=== PATIENT | male | born 1990 | race Caucasian/White ===

== ENCOUNTER 2023-07-03 01:47 | Emergency (ER) | payer OTHER, SELFPAY ==
[2023-07-03 01:50] VITALS: BP 113/81; PULSE 92; RESP 18; TEMP 36.9; O2SAT 98; BMI 23.4
--- NOTE | 2023-07-03 02:06 | ED_ITS ---
HPI - Animal Bite General Chief Complaint: Animal Bite Stated Complaint: ?Bite by [employer] [place] Time Seen by Provider: 07/03/23 01:58 Source: patient Mode of arrival: ambulatory Limitations: no limitations History of Present Illness HPI narrative: patient comes to the emergency room complaining of an animal bite to the left ankle. Patient states that he was about to throw the trash away, then an animal jumped out and bit him in the left ankle. Patient states that he clearly saw that it was a [place]. According to the patient, the animal was very aggressive, chased him and bit him. Patient is adamant that this was not a cat, raccoon or a skunk. Related Data Previous Rx's Medication Instructions Recorded doxycycline hyclate 100 mg capsule 100 mg PO BID #14 caps 07/03/23 ibuprofen 600 mg tablet 600 mg PO TID PRN fever or pain 07/03/23 #20 tabs metronidazole 500 mg tablet 500 mg PO BID #14 tabs 07/03/23 Allergies Allergy/AdvReac Type Severity Reaction Status Date / Time Penicillins [PENICILLINS] Allergy Unknown HIVES Verified 07/03/23 01:57 Review of Systems Review of Systems: Constitutional : No Weight loss, No Fever, No Chills, No Night Sweats, No Fatigue, No Malaise ENT/Mouth : No Hearing loss, No Ear Pain, No Nasal Congestion, No Sinus Pain, No Hoarseness, No sore throat, No Rhinorrhea, No Swallowing Difficulty Eyes: No Eye Pain, No Swelling, No Redness, No Foreign Body, No Discharge, No Vision Changes Cardiovascular : No Chest Pain, No SOB, No Dyspnea on Exertion, No Orthopnea, No Edema, No Palpitations Respiratory : No Cough, No Sputum, No Wheezing, No Smoke Exposure, No Dyspnea Gastrointestinal : No Nausea, No Vomiting, No Diarrhea, No Constipation, No abdominal Pain, No Hematochezia, No Melena Genitourinary : no irregular bleeding, No Dysuria, No Urinary Frequency, No Hematuria, No Urinary Incontinence, No Urgency, No Flank Pain, No Urinary Flow Changes, No Hesitancy Musculoskeletal : No joint pain, No Myalgias, No Joint Swelling Skin : complaining of an animal bite to the left ankle Neuro : No Weakness, No Numbness, No Paresthesias, No Loss of Consciousness, No Dizziness, No Headache Psych : No Anxiety/Panic, No Depression, No SI/HI/AH/VH, No Social Issues, Heme/Lymph: No Bruising, No Bleeding,No Lymphadenopathy Endocrine : No Polyuria, No Polydipsia, No Temperature Intolerance Physical Exam ED Vital Signs: Vital Signs - 24 hr 07/03/23 01:50 Temperature 98.4 F Pulse Rate 92 Respiratory Rate 18 Blood Pressure 113/81 Pulse Oximetry 98 Oxygen Delivery Method Room Air BMI result Body Mass Index 23.4 Const Other: Appearance: Alert. Oriented X3. No acute distress. Eyes: Pupils equal, round and reactive to light. ENT: Pharynx normal. Neck: Normal inspection. Neck supple. No lymph nodes noted. No crepitus CVS: Normal heart rate and rhythm. Pulses normal. Normal S1 and S2 Respiratory: No respiratory distress. Breath sounds normal. No Wheezing. No rales Abdomen: Soft and nontender. No rigidity. No distention. Skin: on the lateral aspect of the left ankle, there are two 1 cm puncture wound/bite wounds parallel to each other Extremities: No lower extremity edema. No Lacerations. No Rash Neuro: Oriented X 3. No motor deficit. No sensory deficit. Moving all extremities. No slurred speech. CN 2 through 12 grossly intact Psych: calm, cooperative, normal affect Course Course Course Narrative: - patient's wounds will be thoroughly cleaned and irrigated - patient does not know when his last Tdap booster was, patient will be getting 1 today - it is unclear if a [place] actually bit the patient. However, since this animal was described to be very aggressive, will go ahead and give the patient rabies immunoglobulin and vaccination - patient is allergic to penicillin, patient given p.o. metronidazole and doxycycline - patient is aware that he will need to return the following weeks for more immunizations to complete the whole series of rabies vaccine - patient agrees with the plan above mentioned Critical Care Time Critical Care Time Critical Care Time: Yes Total Critical Care Time: 30 Attestation: I have personally provided critical care time. Time includes review of lab data, radiology results, discussion with consultants, and monitoring for potential decompensation. Intervention performed as documented. Discharge Plan Discharge Clinical Impression: Bite by animal Patient Disposition: Home, Self-Care Instructions: Animal Bite (ED) Additional Instructions: Please follow-up with your primary care physician tomorrow. If you have any worsening or new symptoms, please return to the emergency room or call 911 Prescriptions: New metronidazole 500 mg tablet 500 mg PO BID Qty: 14 0RF doxycycline hyclate 100 mg capsule 100 mg PO BID Qty: 14 0RF ibuprofen 600 mg tablet 600 mg PO TID PRN (Reason: fever or pain) Qty: 20 0RF
--- NOTE | 2023-07-03 02:46 | MHC.EDTECH ---
This tech irrigated patients animal bite/wounds to the left lower leg near the ankle with 1000MLS of normal saline mixed with betadine per request of .
[2023-07-03] MEDS: Doxycycline Monohydrate 100 MG CAPSULE PO (02:50)
[2023-07-03] MEDS: metroNIDAZOLE 500 MG TABLET PO (02:50)
[2023-07-03] MEDS: Diphth,Pertus(ACell),Tet Adult 0.5 ML SYRINGE IM (02:51)
[2023-07-03] MEDS: Rabies Vaccine, Human Diploid (Imovax) 1 ML VIAL IM (02:53)
[2023-07-03] MEDS: Rabies Immune Globulin/PF 900 UNIT/3 ML VIAL 1696.44 UNIT IM (02:56)
--- NOTE | 2023-07-03 03:22 | PC.NURSE ---
pt a&ox4, respirations even and unlabored. pt reports taking the trash out outside of his apartment where a [place] started chasing him to his car, before he could shut the door, the [place] bit his left leg. pt reporting no pain at this time. pt has two medium size lacerations on the left lateral leg, bleeding controlled, wound cleaned and wrapped in bandage. at bedside to inject rabies imogam into lacerations. pt explained on discharge about follow up with short stay surgery and medication use. pt understands instructions and ambulated out of ED with steady gait.
== END 2023-07-03 03:26 | disposition home or self-care (01) ==
PROVIDERS: Emergency Provider Emergency Medicine
DX: S91.052A Open bite, left ankle, initial encounter (principal); W53.81XA Bitten by other rodent, initial encounter; Y93.89 Activity, other specified; Y92.9 Unspecified place or not applicable; Y99.9 Unspecified external cause status; Z23 Encounter for immunization
CPT/HCPCS: 90375; 90471; 90472; 90675; 90715; 96372; 99284

== ENCOUNTER 2024-01-04 01:46 | Emergency (ER) | payer MEDICAID, SELFPAY ==
[2024-01-04 02:16] VITALS: BP 122/88; PULSE 95; RESP 16; TEMP 37.1; O2SAT 98; BMI 23.0
[2024-01-04 02:42] VITALS: BP 119/86; PULSE 91; RESP 14; TEMP 37; O2SAT 99
[2024-01-04 02:59] LABS: Basophils Absolute Auto 0.1 X10*3/uL (0.0-0.2); Basophils Percent Auto 0.8 % (0-2); Eosinophils Absolute Auto 0.4 X10*3/uL (0.0-0.4); Hematocrit 40.9 % (42.0-52.0); Hemoglobin 14.3 g/dl (14.0-18.0); Imm Gran Abs Auto 0.02 X10*3/uL (0.00-0.03); Imm Gran Pct Auto 0.2 % (0.0-0.4); MANUAL DIFF FLAG NO; Mean Corpuscular Hemoglobin 28.4 pg (27.0-33.0); Mean Corpuscular Volume 81.3 fL (80.0-98.0); Monocytes Absolute Auto 0.9 X10*3/uL (0.1-1.2); Monocytes Percent Auto 8.5 % (2-11); Neutrophils Absolute Auto 4.7 x10*3/uL (2.0-8.3); Neutrophils Percent Auto 46.5 % (45-73); Platelet Count 260 X10*3/uL (160-400); Red Blood Count 5.03 X10*6/uL (4.60-5.80); Red Cell Distribution Width 12.5 % (11.0-16.0); White Blood Count 10.1 X10*3/uL (4.8-10.8)
[2024-01-04 03:02] LABS: Appearance Urine Clear; Color Urine Dark Yellow; Glucose Urine UA Negative (Negative); Leukocyte Esterase Urine Negative (Negative); Nitrite Urine Negative (Negative); Specific Gravity - Urine >= 1.030 (1.005-1.025); UMIC TRIGGER UACC YES; Urine Blood Negative (Negative); Urine Ketones Trace mg/dL (Negative); Urine Protein 30 (1+) mg/dL (Neg-Trace)
[2024-01-04 03:14] LABS: Amphetamine Screen Urine Not Detected (Not Detect); Barbiturates, Urine Not Detected (Not Detect); Benzodiazepines Screen Urine Not Detected (Not Detect); Buprenorphine Scr Not Detected (Not Detect); Cannabinoid Screen Urine Not Detected (Not Detect); Cocaine Screen Urine POSITIVE (Not Detect); Fentanyl, urine POSITIVE (Not Detect); Methadone Screen, Urine Not Detected (Not Detect); Opiate Screen Urine POSITIVE (Not Detect); Oxycodone Screen Urine Not Detected (Not Detect); Phencyclidine Screen Urine Not Detected (Not Detect)
[2024-01-04 03:21] LABS: Alanine Aminotransferase 9 U/L (0-40); Albumin Level 4.6 g/dL (3.5-5.0); Alkaline Phosphatase 46 U/L (39-117); Anion Gap 17 (12-20); Aspartate Amino Transferase 11 U/L (5-37); Bacteria Urine None Seen (None Seen); Bilirubin Total 0.7 mg/dL (0.0-1.0); Blood Urea Nitrogen 18 mg/dL (9-16); Calcium 9.7 mg/dL (8.4-10.2); Carbon Dioxide 20 mmol/L (22-29); Chloride 109 mmol/L (96-108); Creatinine Clr Calc Pharmacy 118.3; Estimated Glomerular Filt Rate > 60; Ethanol < 10 mg/dL; Glucose Random 111 mg/dL (60-115); Potassium 3.4 mmol/L (3.3-5.1); RBC Urine 0-2 /HPF (0-2); Sodium 143 mmol/L (135-145); Squamous Epithelial Cell Urine 0-2 /HPF (0-2); Total Protein 7.8 g/dL (6.5-8.0); WBC Urine 0-5 /HPF (0-5)
[2024-01-04 03:40] LABS: Influenza A PCR NEGATIVE (Negative); Influenza B PCR NEGATIVE (Negative); Resp Syncy Virus RNA Qual PCR NEGATIVE (Negative); SARS COV2 PCR INHOUSE NEGATIVE (Negative)
--- NOTE | 2024-01-04 04:13 | ED_ITS ---
HPI - Psych General Chief Complaint: ETOH/Substance Use Stated Complaint: Opioid Withdrawel Time Seen by Provider: 01/04/24 03:43 Source: patient Mode of arrival: ambulatory Limitations: no limitations History of Present Illness ED Provider: dr chen HPI Narrative: Patient's history of fentanyl opiate use for for 5 years was sober for 1 year till last month when started using drugs again uses fentanyl and heroin about 2 bundles a day last use was about 5 days patient was prescribed clonidine for withdrawal by the PCP which she took till yesterday morning since then been feeling jittery nauseous rest/asking for supportive treatment for withdrawal wants to go to detox Related Data Previous Rx's ?Medication ?Instructions ?Recorded doxycycline hyclate 100 mg capsule 100 mg PO BID #14 caps 07/03/23 ibuprofen 600 mg tablet 600 mg PO TID PRN fever or pain 07/03/23 #20 tabs metronidazole 500 mg tablet 500 mg PO BID #14 tabs 07/03/23 Allergies Allergy/AdvReac Type Severity Reaction Status Date / Time Penicillins [PENICILLINS] Allergy Unknown HIVES Verified 01/04/24 02:20 Review of Systems 2 Review of Systems: Yes all other systems are reviewed and are negative [facility] Social History Social History Advance Directives: No Advance Directives Information Provided: No Do you have a plan to hurt others: No Plan Physical Exam 2 Vital Signs: Vital Signs: Last Vital Signs Temp 98.6 F 01/04/24 02:42 Pulse 91 01/04/24 02:42 Resp 14 01/04/24 02:42 BP 124/80 01/04/24 04:26 Pulse Ox 99 01/04/24 02:42 O2 Del Method Room Air 01/04/24 02:42 BMI result Body Mass Index 23.0 Appearance: Alert. Oriented X3. No acute distress. Eyes: PERRLA, No Nystagmus ENT: Pharynx normal. Oral Mucosa moist Neck: Normal inspection. Neck supple. CVS: Normal heart rate and rhythm. Pulses normal. Respiratory: No respiratory distress. Equal air entry bilateral, no wheezing/rales/rhonchi Abdomen: Soft and nontender. Bowel sounds are present, no mass palpable, no CVA tenderness Skin: Skin warm and dry. Normal skin color. Normal skin turgor. Extremities: No lower extremity edema. No calf tenderness psych: Mood stable slightly anxious no hallucination or delusion no depression Neuro: Oriented X 3. No motor deficit. No sensory deficit.No cerebellar signs , cranial nerves II-XII intact Medications Administered Discontinued Medications Generic Name Dose Route Start Last Admin Trade Name Freq PRN Reason Stop Dose Admin Clonidine HCl 0.3 mg 01/04/24 04:13 01/04/24 04:26 Clonidine Hcl 0.1 Mg Tablet PO 01/04/24 04:14 0.3 mg ONCE ONE Administration Protocol Lorazepam 2 mg 01/04/24 04:16 01/04/24 04:26 Lorazepam 1 Mg Tablet PO 01/04/24 04:17 2 mg ONCE ONE Administration Medical Decision Making Lab Data 01/04/24 02:51 01/04/24 02:51 Labs: Lab Results 01/04/24 Range/Units 02:51 WBC 10.1 (4.8-10.8) X10*3/uL RBC 5.03 (4.60-5.80) X10*6/uL Hgb 14.3 (14.0-18.0) g/dl Hct 40.9 L (42.0-52.0) % MCV 81.3 (80.0-98.0) fL MCH 28.4 (27.0-33.0) pg MCHC 35.0 (31.0-36.0) g/dl RDW 12.5 (11.0-16.0) % Plt Count 260 (160-400) X10*3/uL MPV 11.0 (9.4-12.4) fL Immature Gran % (Auto) 0.2 (0.0-0.4) % Neut % (Auto) 46.5 (45-73) % Lymph % (Auto) 40.0 (20-40) % [place] % (Auto) 8.5 (2-11) % Eos % (Auto) 4.0 (0-4) % Baso % (Auto) 0.8 (0-2) % Lymph # (Auto) 4.0 (1.2-4.9) X10*3/uL [place] # (Auto) 0.9 (0.1-1.2) X10*3/uL Eos # (Auto) 0.4 (0.0-0.4) X10*3/uL Baso # (Auto) 0.1 (0.0-0.2) X10*3/uL Abs Immat Gran (auto) 0.02 (0.00-0.03) X10*3/uL Absolute Neuts (auto) 4.7 (2.0-8.3) x10*3/uL Absolute Nucleated RBC 0.000 (0.0-0.012) X10*3/uL Nucleated RBC % (auto) 0.0 (0.0-0.2) /100WBC Sodium 143 (135-145) mmol/L Potassium 3.4 (3.3-5.1) mmol/L Chloride 109 H (96-108) mmol/L Carbon Dioxide 20 L (22-29) mmol/L Anion Gap 17 (12-20) BUN 18 H (9-16) mg/dL Creatinine 1.03 (0.5-1.4) mg/dL Estim Creat Clear Calc 118.3 Estimated GFR > 60 Random Glucose 111 (60-115) mg/dL Calcium 9.7 (8.4-10.2) mg/dL Total Bilirubin 0.7 (0.0-1.0) mg/dL AST 11 (5-37) U/L ALT 9 (0-40) U/L Alkaline Phosphatase 46 (39-117) U/L Total Protein 7.8 (6.5-8.0) g/dL Albumin 4.6 (3.5-5.0) g/dL Urine Color Dark Yellow Urine Appearance Clear Urine pH 5.0 (5.0-9.0) Ur Specific [place] >= 1.030 H (1.005-1.025) Urine Protein 30 (1+) H (Neg-Trace) mg/dL Urine Glucose (UA) Negative (Negative) mg/dL Urine Ketones Trace (Negative) mg/dL Urine Blood Negative (Negative) Urine Nitrite Negative (Negative) Ur Leukocyte Esterase Negative (Negative) Urine RBC 0-2 (0-2) /HPF Urine WBC 0-5 (0-5) /HPF Ur Squamous Epith Cells 0-2 (0-2) /HPF Urine Bacteria None Seen (None Seen) Hyaline Casts 3-5 (0-2) /LPF Urine Opiates Screen POSITIVE H (Not Detect) Ur Buprenorphine Scrn Not Detected (Not Detect) ng/mL Ur Oxycodone Screen Not Detected (Not Detect) ng/mL Urine Methadone Screen Not Detected (Not Detect) ng/mL Urine Fentanyl Screen POSITIVE H (Not Detect) Ur Barbiturates Screen Not Detected (Not Detect) Ur Phencyclidine Scrn Not Detected (Not Detect) Ur Amphetamines Screen Not Detected (Not Detect) U Benzodiazepines Scrn Not Detected (Not Detect) Urine Cocaine Screen POSITIVE H (Not Detect) U Marijuana (THC) Screen Not Detected (Not Detect) Ethyl Alcohol < 10 mg/dL Influenza Type A (PCR) NEGATIVE (Negative) Influenza Type B (PCR) NEGATIVE (Negative) RSV RNA Qual (PCR) NEGATIVE (Negative) SARS-CoV-2 RNA (RT-PCR) NEGATIVE (Negative) Discharge Plan Discharge Clinical Impression: Opiate addiction Patient Disposition: Left W/O Completing Treatment Prescriptions: No Action metronidazole 500 mg tablet 500 mg PO BID Qty: 14 0RF doxycycline hyclate 100 mg capsule 100 mg PO BID Qty: 14 0RF ibuprofen 600 mg tablet 600 mg PO TID PRN (Reason: fever or pain) Qty: 20 0RF Discharge Date/Time: 01/04/24 04:55
[2024-01-04 04:26] VITALS: BP 124/80
[2024-01-04] MEDS: cloNIDine HCL 0.1 MG TABLET 0.3 MG PO (04:26)
[2024-01-04] MEDS: LORazepam 1 MG TABLET 2 MG PO (04:26)
--- NOTE | 2024-01-04 04:56 | PC.NURSE ---
This RN came out of pt room and pt was not on stretcher. Searched ED,pt and belongings were gone. Pt was medicated with Catapres and Ativan PPO for opiate withdrawal, Alert and oriented X4, reporting that he had called for detox and wanted to be started om suboxone. Pt was changed over into hospital attire, ambuated with steady gait and no difficulties and seen by MD. Pt LWCT.
== END 2024-01-04 04:55 | disposition left against medical advice (07) ==
PROVIDERS: Emergency Provider Internal Medicine; PCP Internal Medicine
DX: F11.20 Opioid dependence, uncomplicated (principal); R11.0 Nausea; Z03.818 Encounter for observation for suspected exposure to other biological agents ruled out
CPT/HCPCS: 0241U; 36415; 80053; 80307; 81001; 85025; 99283

== ENCOUNTER 2024-07-21 12:28 | Emergency (ER) | payer SELFPAY ==
--- NOTE | ~2024-07-21 | CT_ITS ---
EXAMINATION: CT ABDOMEN AND PELVIS WITH CONTRAST CLINICAL INFORMATION: Abdominal pain, nausea and vomiting COMPARISON: None available. TECHNIQUE: Multidetector volumetric images were obtained from the superior aspect of the liver through the pubic symphysis following administration 85 mL of Omnipaque 350 intravenous contrast. Sagittal and coronal reformatted images were obtained on the technologist's workstation. Oral contrast: No This CT examination was performed using dose optimization techniques as appropriate, variously including the following: *Automated exposure control *Adjustment of mA and/or kV according to patient size (this includes techniques or standardized protocols for targeted exams where dose is matched to indication/reason for exam; i.e. extremities or head) *Use of iterative reconstruction technique DLP: 453 mGy-cm FINDINGS: LUNG BASES: The visualized lung bases are unremarkable. LIVER, GALLBLADDER, AND BILIARY TREE: The liver is normal in size, shape, and attenuation. No focal hepatic lesion or biliary ductal dilatation is present. The gallbladder is unremarkable with no evidence of radiopaque gallstones, gallbladder wall thickening, or obvious pericholecystic inflammatory changes. PANCREAS: Unremarkable. SPLEEN: Unremarkable. ADRENAL GLANDS: Unremarkable. KIDNEYS AND URETERS: The kidneys are normal in size, shape, and attenuation. No hydronephrosis, hydroureter, or calculi seen. No perinephric stranding. BLADDER: Unremarkable. GASTROINTESTINAL TRACT: The small and large bowel are unremarkable. The appendix is unremarkable. ABDOMINAL WALL: No significant hernia is appreciated. LYMPH NODES: Normal. VASCULAR: Unremarkable. PELVIC VISCERA: Unremarkable. OSSEOUS STRUCTURES: Unremarkable. CT/CT abdomen pelvis w IV con IMPRESSION: No significant abnormality. Fleischner guidelines were followed. Electronically signed by: Elaine Segal MD 07/21/2024 03:46 PM [facility]
[2024-07-21 12:33] VITALS: BP 113/77; BP 137/80; PULSE 82; PULSE 99; RESP 18; TEMP 36.9; O2SAT 98; O2SAT 99; BMI 25.0
--- NOTE | 2024-07-21 12:34 | ED_ITS ---
HPI - General Adult General Chief complaint: Nausea/Vomiting/Diarrhea Stated complaint: ABD PAIN VOMITING Time Seen by Provider: 07/21/24 12:34 Source: patient and EMS Mode of arrival: EMS Limitations: no limitations History of Present Illness ED Provider: Beverley Benavidez PA-C HPI narrative: Patient is a 34 year old assigned male at with a history of opiate use disorder last use yesterday presenting to the emergency department today with nausea, vomiting, and inability to sleep. Patient states that this morning he began having abdominal pain with nausea and vomiting. Patient states that he is currently using a lot of fentanyl and would like detox after we make sure nothing else is medically causing his symptoms. Patient denies any dizziness, lightheadedness, fever, chills, blurry vision, double vision, loss of vision, chest pain, difficulty breathing, shortness of breath, back pain, night sweats, pain with urination, increased urinary frequency, increased urinary urgency, blood in his urine or stool, syncope or a near syncopal episode, recent trauma or falls, bowel incontinence, bladder incontinence, or any other complaints at this time. Relieving factors: none Exacerbating factors: none Associated symptoms: nausea/vomiting Treatments prior to arrival: none Related Data Previous Rx's ?Medication ?Instructions ?Recorded doxycycline hyclate 100 mg capsule 100 mg PO BID #14 caps 07/03/23 ibuprofen 600 mg tablet 600 mg PO TID PRN fever or pain 07/03/23 #20 tabs metronidazole 500 mg tablet 500 mg PO BID #14 tabs 07/03/23 Allergies Allergy/AdvReac Type Severity Reaction Status Date / Time Penicillins [PENICILLINS] Allergy Unknown HIVES Verified 07/21/24 12:36 Review of Systems 2 Constitutional: Constitutional: Reports no additional constitutional complaints, Denies chills, Denies fever(s) and Denies night sweats Eyes: Eyes: Reports no additional eye complaints, Denies blurry vision, Denies change in vision, Denies diplopia, Denies eye discharge, Denies loss of vision and Denies eye pain ENT: Denies dizziness Cardiovascular: Cardiovascular: Reports no additional cardiovascular complaints, Denies chest pain, Denies lightheadedness, Denies Loss of Consciousness and Denies dyspnea Respiratory: Respiratory: Reports no additional respiratory complaints and Denies dyspnea Gastrointestinal: Gastrointestinal: Reports no additional gastrointestinal complaints, Reports abdominal pain, Denies melena, Denies hematochezia, Denies change in bowel habits, Denies change in stool character, Reports nausea and Reports vomiting Genitourinary: Genitourinary: Reports no additional male genitourinary complaints, Denies hematuria, Denies oliguria, Denies difficulty urinating, Denies dysuria, Denies urinary frequency, Denies urinary hesitancy, Denies urinary incontinence and Denies urinary urgency Musculoskeletal: Musculoskeletal: Reports no additional musculoskeletal complaints, Denies numbness and Denies tingling Neurologic: Denies dizziness, Denies loss of vision, Denies numbness and Denies tingling Psychiatric: Psychiatric: Reports no additional psychiatric complaints Endocrine: Endocrine: Reports no additional endocrine complaints Hematologic/Lymphatic: Hematologic/Lymphatic: Reports no additional hematologic/lymphatic complaints Allergic/Immunologic: Allergic/Immunologic: Reports no additional allergic/immunologic complaints PMFSH Past Medical History Attestation statement: The following information was validated with the patient. Source: old records reviewed and nursing notes reviewed Social History Social History Alcohol intake: current Alcohol intake frequency: holidays/special occasions only Smoked in Last 30 Days: Yes Use of substances other than those prescribed or required for medical reasons: Yes Advance Directives: No Advance Directives Information Provided: No Do you have a plan to hurt others: No Plan Physical Exam ED Vital Signs: Vital Signs - 24 hr 07/21/24 12:33 07/21/24 14:48 Temperature 98.4 F 98.4 F Pulse Rate 82 80 Respiratory Rate 18 14 Blood Pressure 113/77 118/70 Pulse Oximetry 98 100 Oxygen Delivery Method Room Air Room Air BMI result Body Mass Index 25.0 Const General: cooperative, no acute distress, alert and awake Nutritional Appearance: well nourished Orientation/consciousness: patient oriented x3 Limitations: no limitations HENMT Head: Yes normal to inspection and Yes atraumatic Ears: hearing grossly normal bilaterally and external ears normal General nose exam: Normal external nose present, no nasal discharge noted and no epistaxis Face and sinus: Yes normal facial exam, No abrasion and No laceration Mouth: Normal oral and palatal mucosa present, no drooling and no muffled voice Eyes General: appearance normal, both eyes and all related structures Periorbital: periorbital findings normal Eyelids: Yes eyelids normal Conjunctivae: conjunctivae normal Pupils: Equal, round and reactive pupils present EOM: EOMs intact bilaterally Neck Neck: Yes normal visual inspection, Yes full ROM and Yes no lymphadenopathy Chest Chest palpation & inspection: normal inspection of the chest Resp Effort & Inspection: normal respiratory effort and able to speak in complete sentences GI Inspection: Yes normal to inspection Palpation (GI): Soft to palpation, not firm, nontender and no guarding Neuro General: patient oriented x3 and moves all extremities Cranial nerves: Yes Equal, round and reactive pupils present Cognition (Neuro): normal cognition Extrem General: Yes normal to inspection, Yes full ROM and Yes capillary refill normal Psych Appearance: grossly normal Mental Status: mental status grossly normal Affect: normal affect Attitude: cooperative Thought process: Normal thought process present Thought content: Normal thought content present Insight: Good insight present (Psych) Medications Administered Discontinued Medications Generic Name Dose Route Start Last Admin Trade Name Freq PRN Reason Stop Dose Admin Sodium Chloride 1,000 mls @ 999 mls/hr 07/21/24 12:45 07/21/24 16:15 Ns IV 07/21/24 13:45 Infused .Q1H1M CRISTAL Infusion Iohexol 85 ml 07/21/24 14:25 07/21/24 14:25 Iohexol 350 Mg/Ml 75 Ml Infus..Btl IV 07/21/24 14:26 85 ml ONCE ONE Administration Lorazepam 2 mg 07/21/24 12:36 07/21/24 12:44 Lorazepam 2 Mg/Ml Vial IVPUSH 07/21/24 12:37 2 mg ONCE ONE Administration Metoclopramide HCl 10 mg 07/21/24 12:36 07/21/24 12:44 Metoclopramide Hcl 10 Mg/2 Ml Vial IVPUSH 07/21/24 12:37 10 mg ONCE ONE Administration Pantoprazole Sodium 40 mg 07/21/24 12:43 07/21/24 12:50 Pantoprazole Sodium 40 Mg/10 Ml Vial IVPUSH 07/21/24 12:44 40 mg ONCE ONE Administration Medical Decision Making Medical Decision Making MDM Narrative: Patient is a 34 year old assigned male at with a history of opiate use disorder last use yesterday presenting to the emergency department today with nausea, vomiting, and inability to sleep. Patient's physical exam was as noted in the physical exam portion of this note. Patient's blood work showed a mild hyponatremia. Patient's urine is pending. Patient's EKG was unremarkable. Patient's CT abd/pelvis showed no acute process. I explained my physical exam findings as well as all test results to the patient. I answered all questions asked by the patient. Patient received IV reglan, protonix, and lorazepam which, upon re-evaluation, he stated it helped his symptoms significantly. Patient has requested to get detox assistance. Patient is pending meeting with the CARE team to discuss detox resources. Dr. Chidi Escobedo's note and 16:38 hours The patient was seen by the recovery team and the patient will be referred to the [facility] for further evaluation. Patient was discharged home with printed and verbal instructions. Differential Diagnosis Differential Diagnoses: The differential diagnosis associated with the presentation includes Opiate withdrawal Opiate abuse Nausea Vomiting Gastroenteritis Admission/Observation Consideration of admission/observation: Escalation of care including admission/observation considered Patient would have been admitted to the hospital had his work up had any findings where hospital admission was appropriate and his clinical presentation warranted hospital admission. Lab Data [facility] Lab Attestation statement: I reviewed the patient's lab results. My interpretation of these results are in the [facility] Rationale portion of this note. 07/21/24 12:58 12 12:58 Labs: Lab Results 07/21/24 Range/Units 12:58 WBC 7.8 (4.8-10.8) X10*3/uL RBC 5.40 (4.60-5.80) X10*6/uL Hgb 14.9 (14.0-18.0) g/dl Hct 42.2 (42.0-52.0) % MCV 78.1 L (80.0-98.0) fL MCH 27.6 (27.0-33.0) pg MCHC 35.3 (31.0-36.0) g/dl RDW 12.6 (11.0-16.0) % Plt Count 242 (160-400) X10*3/uL MPV 11.5 (9.4-12.4) fL Immature Gran % (Auto) 0.1 (0.0-0.4) % Neut % (Auto) 73.3 H (45-73) % Lymph % (Auto) 16.9 L (20-40) % Waller % (Auto) 8.4 (2-11) % Eos % (Auto) 0.3 (0-4) % Baso % (Auto) 1.0 (0-2) % Lymph # (Auto) 1.3 (1.2-4.9) X10*3/uL Waller # (Auto) 0.7 (0.1-1.2) X10*3/uL Eos # (Auto) 0.0 (0.0-0.4) X10*3/uL Baso # (Auto) 0.1 (0.0-0.2) X10*3/uL Abs Immat Gran (auto) 0.01 (0.00-0.03) X10*3/uL Absolute Neuts (auto) 5.7 (2.0-8.3) x10*3/uL Absolute Nucleated RBC 0.000 (0.0-0.012) X10*3/uL Nucleated RBC % (auto) 0.0 (0.0-0.2) /100WBC Sodium 141 (135-145) mmol/L Potassium 3.1 L (3.3-5.1) mmol/L Chloride 98 (96-108) mmol/L Carbon Dioxide 30 H (22-29) mmol/L Anion Gap 16 (12-20) BUN 14 (9-16) mg/dL Creatinine 1.17 (0.5-1.4) mg/dL Estim Creat Clear Calc 104.3 Estimated GFR > 60 Random Glucose 104 (60-115) mg/dL Calcium 9.9 (8.4-10.2) mg/dL Magnesium 1.9 (1.6-2.6) mg/dL Total Bilirubin 0.8 (0.0-1.0) mg/dL AST 22 (5-37) U/L ALT 11 (0-40) U/L Alkaline Phosphatase 58 (39-117) U/L Total Protein 8.4 H (6.5-8.0) g/dL Albumin 4.9 (3.5-5.0) g/dL Lipase 23 (8-78) U/L Influenza Type A (PCR) NEGATIVE (Negative) Influenza Type B (PCR) NEGATIVE (Negative) RSV RNA Qual (PCR) NEGATIVE (Negative) SARS-CoV-2 RNA (RT-PCR) NEGATIVE (Negative) Independent Interpretation I performed an independent interpretation of an: EKG and CT Scan Interpretation: My interpretation is in agreement with the radiologist's impression of this imaging study. L EXAMINATION: CT ABDOMEN AND PELVIS WITH CONTRAST CLINICAL INFORMATION: Abdominal pain, nausea and vomiting COMPARISON: None available. TECHNIQUE: Multidetector volumetric images were obtained from the superior aspect of the liver through the pubic symphysis following administration 85 mL of Omnipaque 350 intravenous contrast. Sagittal and coronal reformatted images were obtained on the technologist's workstation. Oral contrast: No This CT examination was performed using dose optimization techniques as appropriate, variously including the following: *Automated exposure control *Adjustment of mA and/or kV according to patient size (this includes techniques or standardized protocols for targeted exams where dose is matched to indication/reason for exam; i.e. extremities or head) *Use of iterative reconstruction technique DLP: 453 mGy-cm FINDINGS: LUNG BASES: The visualized lung bases are unremarkable. LIVER, GALLBLADDER, AND BILIARY TREE: The liver is normal in size, shape, and attenuation. No focal hepatic lesion or biliary ductal dilatation is present. The gallbladder is unremarkable with no evidence of radiopaque gallstones, gallbladder wall thickening, or obvious pericholecystic inflammatory changes. PANCREAS: Unremarkable. SPLEEN: Unremarkable. ADRENAL GLANDS: Unremarkable. KIDNEYS AND URETERS: The kidneys are normal in size, shape, and attenuation. No hydronephrosis, hydroureter, or calculi seen. No perinephric stranding. BLADDER: Unremarkable. GASTROINTESTINAL TRACT: The small and large bowel are unremarkable. The appendix is unremarkable. ABDOMINAL WALL: No significant hernia is appreciated. LYMPH NODES: Normal. VASCULAR: Unremarkable. PELVIC VISCERA: Unremarkable. OSSEOUS STRUCTURES: Unremarkable. CT/CT abdomen pelvis w IV con IMPRESSION: No significant abnormality. Fleischner guidelines were followed. Electronically signed by: Elaine Segal MD 07/21/2024 03:46 PM [facility] Dictated By: Elaine Segal MD Signed By: Electronically signed by Elaine Segal MD 07/21/24 1546 Vent. Rate: 084 BPM Atrial Rate: 084 BPM P-R Int: 114 ms QRS Dur: 104 ms QT Int: 396 ms P-R-T Axes: 059 067 059 degrees QTc Int: 467 ms Normal sinus rhythm with sinus arrhythmia Normal ECG No previous ECGs available DD/ 1245 Radiology Impression Discussion of test interpretation with radiology: I have reviewed the radiologist's reading. Independent Historian Clinical information obtained from an independent historian. History obtained from or confirmed by: EMS (EMS provided additional history and confirmed the history provided by the patient.) Discharge Plan Discharge Clinical Impression: Gastroenteritis, Opiate abuse, continuous Patient Disposition: Home, Self-Care Additional Instructions: You were seen by our recovery clinician. Please follow her instructions. Please follow-up with the [facility] to get further help for your opiate use disorder. Your are being discharged home with intranasal Narcan. If you are going to continue to use heroin, you should make sure that there is a sober person with you that is not using drugs and that this person can administer intranasal Narcan in the event that you stop breathing. Prescriptions: No Action metronidazole 500 mg tablet 500 mg PO BID Qty: 14 0RF doxycycline hyclate 100 mg capsule 100 mg PO BID Qty: 14 0RF ibuprofen 600 mg tablet 600 mg PO TID PRN (Reason: fever or pain) Qty: 20 0RF Print Language: Thai
--- NOTE | 2024-07-21 12:38 | ECG_ITS ---
Test Reason : MED CLEARANCE Blood Pressure : / mmHG Vent. Rate : 084 BPM Atrial Rate : 084 BPM P-R Int : 114 ms QRS Dur : 104 ms QT Int : 396 ms P-R-T Axes : 059 067 059 degrees QTc Int : 467 ms Normal sinus rhythm with sinus arrhythmia Normal ECG No previous ECGs available Referred By: Beverley Benavidez Electronically Signed By:NORBERTO CHI MD
[2024-07-21] MEDS: Metoclopramide HCl 10 MG/2 ML VIAL IVPUSH (12:44)
[2024-07-21] MEDS: LORazepam 2 MG/ML VIAL IVPUSH (12:44)
[2024-07-21] MEDS: 0.9 % Sodium Chloride 1,000 ML 999 ML IV (12:47)
[2024-07-21] MEDS: Pantoprazole Sodium 40 MG/10 ML VIAL IVPUSH (12:50)
[2024-07-21 13:02] LABS: MANUAL DIFF FLAG NO
[2024-07-21 13:04] LABS: Basophils Absolute Auto 0.1 X10*3/uL (0.0-0.2); Eosinophils Percent Auto 0.3 % (0-4); Hematocrit 42.2 % (42.0-52.0); Hemoglobin 14.9 g/dl (14.0-18.0); Imm Gran Abs Auto 0.01 X10*3/uL (0.00-0.03); Imm Gran Pct Auto 0.1 % (0.0-0.4); Lymphocytes Absolute Auto 1.3 X10*3/uL (1.2-4.9); Lymphocytes Percent Auto 16.9 % (20-40); Mean Corpuscular HGB Conc 35.3 g/dl (31.0-36.0); Mean Corpuscular Hemoglobin 27.6 pg (27.0-33.0); Mean Corpuscular Volume 78.1 fL (80.0-98.0); Mean Platelet Volume 11.5 fL (9.4-12.4); Monocytes Absolute Auto 0.7 X10*3/uL (0.1-1.2); Monocytes Percent Auto 8.4 % (2-11); Neutrophils Absolute Auto 5.7 x10*3/uL (2.0-8.3); Neutrophils Percent Auto 73.3 % (45-73); Platelet Count 242 X10*3/uL (160-400); Red Cell Distribution Width 12.6 % (11.0-16.0); White Blood Count 7.8 X10*3/uL (4.8-10.8)
[2024-07-21 13:41] LABS: Influenza A PCR NEGATIVE (Negative); Influenza B PCR NEGATIVE (Negative); Resp Syncy Virus RNA Qual PCR NEGATIVE (Negative); SARS COV2 PCR INHOUSE NEGATIVE (Negative)
[2024-07-21 13:52] LABS: Alanine Aminotransferase 11 U/L (0-40); Albumin Level 4.9 g/dL (3.5-5.0); Alkaline Phosphatase 58 U/L (39-117); Anion Gap 16 (12-20); Aspartate Amino Transferase 22 U/L (5-37); Bilirubin Total 0.8 mg/dL (0.0-1.0); Blood Urea Nitrogen 14 mg/dL (9-16); Calcium 9.9 mg/dL (8.4-10.2); Carbon Dioxide 30 mmol/L (22-29); Chloride 98 mmol/L (96-108); Creatinine Clr Calc Pharmacy 104.3; Estimated Glomerular Filt Rate > 60; Glucose Random 104 mg/dL (60-115); Lipase 23 U/L (8-78); Magnesium 1.9 mg/dL (1.6-2.6); Potassium 3.1 mmol/L (3.3-5.1); Sodium 141 mmol/L (135-145); Total Protein 8.4 g/dL (6.5-8.0)
[2024-07-21] MEDS: iohexoL 350 MG/ML 75 ML INFUS..BTL 85 ML IV (14:25)
[2024-07-21 14:48] VITALS: BP 118/70; PULSE 80; RESP 14; TEMP 36.9; O2SAT 100
--- NOTE | 2024-07-21 16:17 | PC.NURSE ---
assumed care of patient at 1615, patient appears to be in no apparent distress at this time, ambulating with steady gait, calm and cooperative. Pt asking about starting methadone, ROSINA Levi in room with patient at this time
[2024-07-21 16:55] VITALS: BP 114/75; PULSE 78; RESP 16; TEMP 36.6; O2SAT 97
[2024-07-21] MEDS: Naloxone HCl Nasal TAKE HOME 4 MG SPRAY 8 MG NOSTRILALT (16:55)
--- OUTSIDE RECORDS SUMMARY | 2024-07-24 12:07 | XMS_ITS | Continuity of Care Document ---
Author Organization [facility] Address [address] [place] [address] [address] [place] [id number] Phone Care Team Providers Care Lead Bi Developer Name Role Phone Isreal MUSE FACS RVT Zev CORTEZ Unavailable Unavailable Allergies, Adverse Reactions, Alerts Substance Reaction Status Criticality No Known Allergies Active No Inform ation Procedures Procedure Date Office/Outpt E&M Established 15 Mins Sep Duplex Scan-extrem Veins; [facility]/ Advance Directives Directive Yes / No Effective Date File Name No Information Encounters Encounter Description Practice Location Reason(s) For Visit Diagnoses Date Provider Providers Copied on Encounter Office/Outpt E&M Established 15 Mins [facility], [address] [place] [address] [address], [id number], [place] tel:[phone] [facility] Body mass index (BMI) 26.0-26.9, adultVenous insufficiency (chronic) (peripheral) 3 Isreal MUSE FACS RVGabriella Chi. [address] [facility], [facility] [address], [place], [address], [place]. tel:[phone] Referring Provider: [facility], [address] [place] [address], [address]. tel:[phone] [facility], [address] [place] [address] [address], [id number], [place] tel:[phone] [facility] Encntr for f/u exam aft trtmt for cond oth than malig neoplmVaricose veins of right lower extremities with pain 3 Isreal MUSE FACS RVT DANA Chi. [address] [facility], [facility] [address], [facility] [place], [address], [place]. tel:[phone] Referring Provider: [facility], [address] [place] [address], [facility] [place], [address]. tel:[phone] Family History Family Member Type Diagnosis Age At Onset No Information Payers Payer name Insurance type Covered republican ID Dmitry carter(s) R [id number] Social History Type Description Quantity Date Captured [...]
== END 2024-07-21 17:01 | disposition home or self-care (01) ==
PROVIDERS: Physician Assistant Medical; Emergency Provider Emergency Medicine Emergency Medical Services
DX: K52.9 Noninfective gastroenteritis and colitis, unspecified (principal); I49.8 Other specified cardiac arrhythmias; R11.2 Nausea with vomiting, unspecified; R10.2 Pelvic and perineal pain; F11.10 Opioid abuse, uncomplicated; Z03.818 Encounter for observation for suspected exposure to other biological agents ruled out; Z79.899 Other long term (current) drug therapy
CPT/HCPCS: 0241U; 74177; 80053; 83690; 83735; 85025; 93005; 96361; 96374; 96375; 99284; J2060; J2470; J2765; Q9967

== ENCOUNTER → 2024-07-21 12:38 | Outpatient (BNV) | payer SELFPAY | PROVIDERS: Emergency Provider Emergency Medicine Emergency Medical Services; Visit Provider Internal Medicine Cardiovascular Disease | DX: R11.2 Nausea with vomiting, unspecified (principal) | CPT/HCPCS: 93010 ==

== ENCOUNTER 2025-04-21 02:57 | Emergency (ER) | payer MEDICAID, SELFPAY ==
--- OUTSIDE RECORDS SUMMARY | 2022-09-28 10:15 | XMS_ITS | Continuity of Care Document ---
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 Role Phone Isreal MUSE FACS RVT Zev CORTEZ Unavailable Unavailable Allergies, Adverse Reactions, Alerts Substance Reaction Status Criticality No Known Allergies Active No Inform ation Procedures Procedure Date Office/Outpt E&M Established 15 Mins Sep Duplex Scan-extrem Veins; [facility]/ Advance Directives Directive Yes / No Effective Date File Name No Information Encounters Encounter Description Practice Location Reason(s) For Visit Diagnoses Date Provider Providers Copied on Encounter Office/Outpt E&M Established 15 Mins [facility], [address] [place] [address] Dr [address], [id number], [place] tel:[phone] [facility] Body mass index (BMI) 26.0-26.9, adultVenous insufficiency (chronic) (peripheral) 3 Isreal MUSE FACS RVGabriella Chi. [address] [facility], [facility] [address], [place], [address], [place]. tel:[phone] Referring Provider: [facility], [address] [place] [address], [address]. tel:[phone] [facility], [address] [place] [address] [address], [id number], [place] tel:[phone] [facility] Encntr for f/u exam aft trtmt for cond oth than malig neoplmVaricose veins of right lower extremities with pain 3 Isreal MUSE FACS RVT DANA Chi. [address] [facility], [facility] [address], [place], [address], [place]. tel:[phone] Referring Provider: [facility], [address] [place] [address], [facility] [place], [address]. tel:[phone] Family History Family Member Type Diagnosis Age At Onset No Information Payers Payer name Insurance type Covered alliance party ID Dmitry carter(s) R CI [id number] Social History Type Description Quantity Date Captured Comments Alcohol Use Details Caffeine Use Details Unknown Tobacco Use Status Ex-cigarette smoker 023 Smoking Status Former smoker Smoking Tobacco Use Details Cigarette: Age Stopped: 23 Cigarette: No Details Available Sex Male Vital Signs Date / Time: Height Weight BMI Pulse Rate Blood Pressure Temperature Respiratory Rate Body Surface Area Head Circumference Head Circ. Percentile Wt./Herrera. Percentile BMI percentile Pulse Ox Inhaled Ox 2:31 PM 75.00 in Chief Complaint And Reason For Visit No Information Reason For Referral Reason For Referral No Information Plan Of Treatment Date Type Action Status Goal Tobacco cessation counseling completed Goal Diet education completed History Of Present Illness Encounter Date Complaint History Of Prese nt Illness No Information Functional Status Date Functional Assessmen t No Information Instructions Date Instruction Additional Infor myrna Giving Encouragement to Exercise Related to Body mass index [BMI] 26.0-26.9, adult Diet education Related to Body mass index [BMI] 26.0-26.9, adult Assessments Type Assessment Date assessment Body mass index [BMI] 26.0-26.9, adult assessment Venous insufficiency (chronic) ( peripheral) Patient Care Teams Name Effective Dates (start - stop) Status Members No Information
--- OUTSIDE RECORDS SUMMARY | 2024-09-18 06:30 | XMS_ITS ---
Author Organization [facility] Address [address] [place] [phone] Care Team Providers Care Crna Name Role Phone NO, PCP Primary Care Provider Karlee Levine Unavailable REASON FOR VISIT po bx, hsng, basic intake Social History Sex Assigned At : Social History Observation Description Sex Assigned At Male Encounters Encounter Location Date Provider Diagnosis [facility] [address] [place] [phone] 09/18/2024 Karlee Levine Plan Of Treatment No Information Progress Notes * Damion GOODWINDOB:[birth year] (34 yo M)Acc No.[id number]:09/18/2024 Case Management New Patient: Damion TOLEDO Mahsa Provider: Raymundo Levine :1990 A ge:34 Y S ex:Male Date:09/18/2024 Address:[address] [place], [place] [id number] Pcp:PCP NO Subjective: * Chief Complaints: * 1 . Po bx, hsng, basic intake. Objective: Assessment: Plan: * Treatment: * Images: Billing Information: * Visit Code: * Procedure Codes: Care Plan Details* * Electronic signature of John Levine on 04/21/2025 at 03:32 AM EDT Sign off status: Pending * Provider: Raymundo Levine Date: 09/18/2024 Generated for Printi ng/Faxing/eTransmitting on: 0 04/21/2025 03:32 AM EDT
--- NOTE | 2025-04-21 | ECG_ITS ---
Test Reason : SYNCOPE Blood Pressure : */* mmHG Vent. Rate : 73 BPM Atrial Rate : 73 BPM P-R Int : 172 ms QRS Dur : 102 ms QT Int : 396 ms P-R-T Axes : 52 16 39 degrees QTcB Int : 436 ms Normal sinus rhythm Normal ECG When compared with ECG of 21-Jul-2024 12:45, T wave amplitude has increased in Anterolateral leads Referred By: Generic ED Physician Electronically Signed By: NORBERTO CHI MD
--- NOTE | ~2025-04-21 | US_ITS ---
CLINICAL HISTORY: r o DVT, bilateral swelling erythema Venous duplex ultrasound bilateral lower extremity Comparison: None provided Findings: The visualized deep veins are fully compressible with normal Doppler color flow and spectral tracings. No popliteal cyst. Incidental note is made of benign-appearing common femoral chain lymph nodes. IMPRESSION: 1. Negative for bilateral lower extremity deep vein thrombosis. This document has been electronically signed by: Sammy Frey MD on 04/21/2025 05:56:27
--- NOTE | ~2025-04-21 | XR_ITS ---
CLINICAL HISTORY: syncope 2 view chest x-ray Comparison: None provided Findings: The lungs are clear. Normal size heart. No acute fracture. IMPRESSION: 1. No acute findings. This document has been electronically signed by: Sammy Frey MD on 04/21/2025 05:16:57
[2025-04-21 03:00] VITALS: BP 127/80; PULSE 76; RESP 18; TEMP 37.1; O2SAT 97; BMI 22.1
--- OUTSIDE RECORDS SUMMARY | 2025-04-21 03:32 | XMS_ITS | Encounter Summary ---
Author Organization [facility] Address [address] [place] [phone] Phone Care Team Providers Care Java Development Manager Name Role Phone Pcp, Unknown Primary Care Provider Ganga Carvajal DO Primary Care Provider [phone] Encounter Details Date Type Department Care Team (Late st Contact Info) Description 01/04/2021 Procedure Pass [facility], Ct Scan - [address] [address] Social History Tobacco Use Types Packs/Day Years Used Date Smoking Tobacco: Never Assessed Sex and Gender Information Value Date Recorded Sex Assigned at Not on file Legal Sex Male 12:10 AM EDT Gender Identity Not on file Sexual Orientation Not on file documented as of this encounter Functional Status * Calculated C-SSRS Risk Score (Lifetime/Recent) Answer Date of Assessment Author No Risk Indicated 01/04/2021 9:46 AM EDT Constantino Wei, RN * Branch Suicide Severity Rating Scale (Screener/Recent Self-Report) Question Answer Date of Assessment Author 1. Wish to be (Past 1 Month) No 9:46 AM TRISTIANT Constantino Wei, RN 2. Non-Specific Active Suici susie Thoughts (Past 1 Month) No 01/04/2021 9:46 AM TRISTIANT Collin Wei, RN 6. Suicidal Behavior (Lifetime) No 9:46 AM TRISTIANT Constantino Wei, RN documented as of this encounter Plan of Treatment Not on file documented as of this encounter Visit Diagnoses Not on filedocumented in this encounter Care Teams Java Development Manager Relationship Specialty Start Date End Date Pcp, Unknown PCP - General 01/04/21 01/14/24 Ganga Canseco DO [email or web address] PCP - General Internal Medicine 01/15/24 documented as of this encounter Additional Source Comments The information contained in this document represents components of the legal health record. It is not the complete legal health record.[facility]
--- OUTSIDE RECORDS SUMMARY | 2025-04-21 03:32 | XMS_ITS | Encounter Summary ---
Author Organization [facility] Address [address] [place] [phone] Phone Care Team Providers Care Juvenile Court Judge Name Role Phone Pcp, Unknown Primary Care Provider Ganga Carvajal DO Primary Care Provider [phone] Encounter Details Date Type Department Care Team (Latest Contact Info) Description 08/01/2020 Transcribe Orders Virtual Department [address] [place] [id number] Stefany Palacios MD [address] [place] [phone] [email or web address] Exposure to SARS-associated coronavirus (Primary Dx) Social History Tobacco Use Types Packs/Day Years Used Date Smoking Tobacco: Never Assessed Sex and Gender Information Value Date Recorded Sex Assigned at Not on file Legal Sex Male 12:10 AM EDT Gender Identity Not on file Sexual Orientation Not on file documented as of this encounter Plan of Treatment Not on file documented as of this encounter Visit Diagnoses Diagnosis Exposure to SARS-associated coronavirus- Primary documented in this encounter Additional Health Concerns Infection Onset Date Last Indicated Resolved Time CoV-Exposed Comment:Recent close contact 08/01/2020 08/01/2020 08/15/2020 1:24 AM EST documented as of this encounter Care Teams Juvenile Court Judge Relationship Specialty Start Date End Date Pcp, Unknown PCP - General 01/04/21 01/14/24 Ganga Canseco DO PCP - General Internal Medicine 01/15/24 documented as of this encounter Additional Source Comments The information contained in this document represents components of the legal health record. It is not the complete legal health record.[facility]
--- OUTSIDE RECORDS SUMMARY | 2025-04-21 03:32 | XMS_ITS | Encounter Summary ---
Author Organization [facility] Address [address] [place] [id number] Phone Care Team Providers Care Boom Stick Worker Name Role Phone Pcp, Unknown Primary Care Provider Ganga Carvajal DO Primary Care Provider [phone] Encounter Details Date Type Department Care Team (Latest Contact Info) Description 08/01/2020 Transcribe Orders Virtual Department [address] [place] [phone] Stefany Palacios MD [address] [place] [id number] [email or web address] Exposure to SARS-associated coronavirus (Primary [...] documented as of this encounter Care Teams Boom Stick Worker Relationship Specialty Start Date End Date Pcp, Unknown PCP - General 01/04/21 01/14/24 Ganga Canseco DO PCP - General Internal Medicine 01/15/24 documented as of this encounter Additional Source Comments The information contained in this document represents components of the legal health record. It is not the complete legal health record.[facility]
--- OUTSIDE RECORDS SUMMARY | 2025-04-21 03:32 | XMS_ITS | Clinical Summary ---
Author Organization [email or web address] Address [address] [facility] [address] [place] [address] Care Team Providers Care Senior Landscape Architect Name Role Phone Unavailable Primary Care Provider Unavailabl e Social History Tobacco Use Types Packs/Day Years Used Date Smoking Tobacco: Never Assessed Sex and Gender Information Value Date Recorded Sex Assigned at Not on file Legal Sex Male 11:35 AM EDT Gender Identity Not on file Sexual Orientation Not on file Plan of Treatment Health Maintenance Due Date Last Done Comments Depression Screening 1988 HIV Screening 1988 Lipid Panel 1988 SDOH Screening 1988 Disability Screening 1988 Alcohol/Substance Use Screening 2000 Tobacco Screening 2000 Family Planning (PISQ) 2003 HPV Vaccines (1 - Male 3-dos e series) 2003 Hepatitis C Screening 2006 DTaP/Tdap/Td Vaccines (1 - Tdap) 2007 Hepatitis B Vaccines (1 of 3 - 19+ 3-dose series) 2007 COVID-19 Vaccine (1 - 2023-2 5 season) 2025 Influenza Vaccine (#1) 2025 Zoster Vaccines (1 of 2) 2038 RSV Patients and Pa tients Aged 60 years or older (1 - 1-dose 75+ series) 2063 HIB Vaccines Aged Out No longer eligi ble based on patient's age to complete this topic Hepatitis A Vaccines Aged Out No long er eligible based on patient's age to complete this topic IPV Vaccines Aged Out No longer eligi ble based on patient's age to complete this topic Meningococcal B Vaccine Aged Out No l onger eligible based on patient's age to complete this topic Meningococcal Vaccine Aged Out No molly willian eligible based on patient's age to complete this topic Pneumococcal Vaccine: Pediat rics (0 to 5 Years) and At-Risk Patients (6 to 49) Years Aged Out No longer eligible b ased on patient's age to complete this topic RSV under 20 months Aged Out No longe r eligible based on patient's age to complete this topic Rotavirus Vaccines Aged Out No longer eligible based on patient's age to complete this topic
--- OUTSIDE RECORDS SUMMARY | 2025-04-21 03:32 | XMS_ITS | Clinical Summary ---
Author Organization [facility] Address [address] [place] [address] [place] [phone] Phone Care Team Providers Care Sidewalk Repairer Name Role Phone Ganga Canseco DO Primary Care Provider [phone] Allergies Active Allergy Reactions Criticality Noted Date Comments Penicillins 01/04/2021 Pollen Extracts 01/04/2021 Medications fluticasone propionate (FLONASE) 50 mcg/actuation nasal spray 1 spray by Nasal route daily. Active omeprazole (PRILOSEC) 20 MG capsule Take 20 mg by mouth daily. Active Active Problems No known active problems Social History Tobacco Use Types Packs/Day Years Used Date Smoking Tobacco: Never Assessed Education Answer Date Recorded Are you interested in more education? Not on pieter e 05/03/2024 Are you concerned about learning? Not on file 05/03/2024 No 05/03/2024 No 05/03/2024 Digital Access Answer Date Recorded No 05/03/2024 No 05/03/2024 Reliable internet access at home? Not on file 05/03/2024 Device with a working camera? Not on file Sex and Gender Information Value Date Recorded Sex Assigned at Not on file Legal Sex Male 12:10 AM EDT Gender Identity Not on file Sexual Orientation Not on file Last Filed Vital Signs Vital Sign Reading Time Taken Comments Blood Pressure 154/97 01/04/2021 9:49 AM EDT Pulse 70 01/04/2021 9:49 AM EDT Temperature 36.7 C (98.1 F) 01/04/2021 11:20 AM EDT Respiratory Rate 18 01/04/2021 9:49 AM EDT Oxygen Saturation 98% 01/04/2021 9:49 AM EDT Inhaled Oxygen Concentration - - Weight 104.3 kg (230 lb) 01/04/2021 9:49 AM EDT Height 190.5 cm (6' 3 ) 01/04/2021 9:49 AM EDT Body Mass Index 28.75 01/04/2021 9:49 AM EDT Plan of Treatment Health Maintenance Due Date Last Done Comments LIPID PANEL 1988 DEPRESSION SCREENING 2000 SMOKING Hx and SMOKELESS TOBACCO SCREENING 2001 HEPATITIS C SCREENING 2006 HIV ONE-TIME SCREENING (18-65 YEARS) 2006 Adult Td,Tdap Booster 05/20/2023 05/20/2013 , 08/14/2009, 11/22/2000 INFLUENZA VACCINE (#1) 2025 , 05/13/2020, 06/05/2019, Additional history exists COVID-19 VACCINE ( season) 2025 12/11/2020, 11/13/2020 HIB VACCINES Completed 02/27/1990 PNEUMOCOCCAL VACCINES (0-49 years) Aged Out 07/06/1998 No longer eligible based on patient's age to complete this topic MENINGOCOCCAL VACCINES (ACWY) Completed 03/23/2007 HEPATITIS A VACCINES Aged Out No long er eligible based on patient's age to complete this topic MENINGOCOCCAL VACCINES (B) Aged Out N o longer eligible based on patient's age to complete this topic Medical Devices Not on file Insurance [facility]CO [employer] Care Teams Sidewalk Repairer Relationship Specialty Start Date End Date Ganga Canseco DO [email or web address] PCP - General Internal Medicine 01/15/24 Additional Source Comments The information contained in this document represents components of the legal health record. It is not the complete legal health record.[facility]
--- OUTSIDE RECORDS SUMMARY | 2025-04-21 03:32 | XMS_ITS | Patient Health Record ---
Author Organization [facility] Address [address] [place] [address] Care Team Providers Care Whitesmith Name Role Phone NO, PCP Primary Care Provider [phone] Karlee Levine Unavailable Ginny Hernandez Unavailable [phone] Reason For Referral No Information Social History Sex Assigned At : Social History Observation Description Sex Assigned At Male Encounters Encounter Location Date Provider Diagnosis [facility] [address] [place] [address] [phone] 09/18/2024 Karlee Levine [facility] [address] [place] [address] [phone] 09/18/2024 Ginny Hernandez Plan Of Treatment No Information Insurance Providers Payer Name Payer Address Payer Phone Subscriber Number Group Number Insured Name Patient Relationship to Insured Coverage Start Date Coverage End Date [place] Medicaid Standard [address] [place] [address] [phone] [id number] Damion Goodwin Self - patient is the insured
[2025-04-21 03:53] LABS: Hematocrit 27.6 % (42.0-52.0); Hemoglobin 9.3 g/dl (14.0-18.0); Imm Gran Abs Auto 0.02 X10*3/uL (0.00-0.03); Imm Gran Pct Auto 0.2 % (0.0-0.4); Lymphocytes Absolute Auto 2.1 X10*3/uL (1.2-4.9); MANUAL DIFF FLAG NO; Mean Corpuscular HGB Conc 33.7 g/dl (31.0-36.0); Mean Corpuscular Hemoglobin 26.6 pg (27.0-33.0); Mean Corpuscular Volume 79.1 fL (80.0-98.0); NRBC Abs Auto 0.000 X10*3/uL (0.0-0.012); NRBC Pct Auto 0.0 /100WBC (0.0-0.2); Platelet Count 218 X10*3/uL (160-400); Red Blood Count 3.49 X10*6/uL (4.60-5.80); White Blood Count 8.7 X10*3/uL (4.8-10.8)
[2025-04-21 04:12] LABS: Alanine Aminotransferase 16 U/L (0-40); Albumin Level 4.0 g/dL (3.5-5.0); Alkaline Phosphatase 58 U/L (39-117); Anion Gap 13 (12-20); Aspartate Amino Transferase 26 U/L (5-37); Blood Urea Nitrogen 15 mg/dL (9-16); Calcium 8.7 mg/dL (8.4-10.2); Carbon Dioxide 25 mmol/L (22-29); Chloride 105 mmol/L (96-108); Creatinine Clr Calc Pharmacy 130.1; Estimated Glomerular Filt Rate > 60; Magnesium 2.0 mg/dL (1.6-2.6); Potassium 4.0 mmol/L (3.3-5.1); Sodium 139 mmol/L (135-145); Total Protein 7.4 g/dL (6.5-8.0)
[2025-04-21 04:27] VITALS: BP 123/77; PULSE 77; RESP 18; TEMP 36.8; O2SAT 96
[2025-04-21 05:31] LABS: INTERNATIONAL NORM RATIO 1.2 (0.9-1.1); Prothrombin Time 13.7 SEC (10.9-12.4)
[2025-04-21 05:47] LABS: B Type Natriuretic Peptide 24 pg/mL (<100)
[2025-04-21 05:49] LABS: Troponin-I High Sensitivity < 2.7 ng/L (<3.5-35.0)
--- NOTE | 2025-04-21 06:18 | ED.EXTPRO ---
HPI - Extremity Problem General Chief complaint: Extremity Problem Stated complaint: fainted, swollen lower extremities Time Seen by Provider: 04/21/25 03:28 Source: patient Mode of arrival: ambulatory Limitations: no limitations History of Present Illness ED Provider: Dr. Terra Steen HPI Narrative: 34-year-old male with a history of polysubstance use disorder on methadone, DVT not currently on anticoagulation, presenting with bilateral lower extremity redness, pain ongoing for the last several months and worsening over the last couple of days. Admits that he had 2 episodes of syncope while he was sitting on the bus today. Admits that he was sitting there and ?then I lost time and woke up down the road?. Feels as though this lasted about 2 minutes each time. Denies associated chest pain, fever, cough, shortness of breath, abdominal pain, nausea, vomiting, diarrhea, known sick contacts or travel. He does have several areas of excoriation on his skin which he reports are ?itchy?. States he has not used IV drugs in several months. Does admit to cocaine use about 3 days ago. Related Data Previous Rx's ?Medication ?Instructions ?Recorded doxycycline hyclate 100 mg capsule 100 mg PO BID #14 caps 07/03/23 ibuprofen 600 mg tablet 600 mg PO TID PRN fever or pain 07/03/23 #20 tabs metronidazole 500 mg tablet 500 mg PO BID #14 tabs 07/03/23 cephalexin 500 mg capsule 500 mg PO QID 7 days #28 caps 04/21/25 Allergies Allergy/AdvReac Type Severity Reaction Status Date / Time Penicillins (PENICILLINS) Allergy Unknown HIVES Verified 04/21/25 03:01 Review of Systems Review of Systems: As per HPI, full review of systems performed and negative but for the above mentioned pertinent positives and negatives. [facility] Social History Social History Unable to assess alcohol history related to: Unknown Alcohol intake: current Alcohol intake frequency: holidays/special occasions only Substance Use Type: Crack/Cocaine Physical Exam Exam: Exam: GENERAL: Anxious, agitated, uncontrolled movements. SKIN: Normal skin color for ethnicity, warm, dry, multiple skin excoriations of various degrees of healing, no crepitus, no petechiae, no blistering, minimal erythema overlying the anterior aspect of the bilateral lower extremities left greater than right. HEENT: Normocephalic, atraumatic, no stridor, posterior oropharynx nonerythematous, poor elim ira dentition, dry mucous membranes, EOMI. NECK: Soft, supple, full ROM, midline structures nontender, no step-offs, no deformities, no lymphadenopathy. CHEST: Heart regular tachycardia, no murmurs, symmetric chest rise and fall, no crepitus. PULMONARY: Clear to auscultation bilaterally, no labored breathing, no wheezes/rhales/rhonchi. ABDOMINAL: Soft, nondistended, nontender, positive bowel sounds in all quadrants. : Deferred. MUSCULOSKELETAL: Normal tone, full range of motion, no deformities, nonpitting peripheral edema, neurovascularly intact distally. NEURO: Alert and oriented to person, CN II through XII intact, equal strength and sensation bilateral upper and lower extremities, no focal neurologic deficits. PSYCHIATRIC: Anxious affect, agitated, tangential speech, poor eye contact and psychomotor agitation. Vital Signs: Vital Signs: Last Vital Signs Temp 98.3 F 04/21/25 06:45 Pulse 77 04/21/25 06:45 Resp 18 04/21/25 06:45 BP 123/77 04/21/25 06:45 Pulse Ox 96 04/21/25 06:45 O2 Del Method Room Air 04/21/25 06:45 BMI result Body Mass Index 22.1 Medications Administered Discontinued Medications Generic Name Dose Route Start Last Admin Trade Name Freq PRN Reason Stop Dose Admin Ceftriaxone Sodium 1 gm 04/21/25 06:21 04/21/25 06:37 Ceftriaxone Sodium 1 Gm Vial IVPUSH 04/21/25 06:22 1 gm ONCE ONE Administration Hydroxyzine HCl 50 mg 04/21/25 04:24 04/21/25 04:37 Hydroxyzine Hcl 50 Mg Tablet PO 04/21/25 04:25 50 mg ONCE ONE Administration Medical Decision Making Medical Decision Making MDM Narrative: Patient presents today with chief complaint of possible infection. Differential diagnosis includes abscess, cellulitis, deep space infection such as fasciitis, bone infection, vascular abnormality, among many others. Findings are not consistent with fasciitis specifically with no crepitus, blistering of the skin, pain out of proportion, hemodynamic instability, poor historical factors. Ultrasound is negative for DVT. He has no evidence of cobblestoning however, given his history of IV drug use, worsening redness and subjective pain we will treat as cellulitis. An extensive discussion with him regarding IV drug use, return precautions. He understands and agrees with plan for discharge. Discharged home in stable condition. Differential Diagnosis Differential Diagnoses: The differential diagnosis associated with the presentation includes (As above) Admission/Observation Consideration of admission/observation: Escalation of care including admission/observation considered Lab Data MDM Lab Attestation statement: I reviewed the patient's lab results. 04/21/25 03:48 04/21/25 03:48 Labs: Lab Results 04/21/25 04/21/25 04/21/25 Range/Units 03:48 05:18 05:19 WBC 8.7 (4.8-10.8) X10*3/uL RBC 3.49 L D (4.60-5.80) X10*6/uL Hgb 9.3 L D (14.0-18.0) g/dl Hct 27.6 L D (42.0-52.0) % MCV 79.1 L (80.0-98.0) fL MCH 26.6 L (27.0-33.0) pg MCHC 33.7 (31.0-36.0) g/dl RDW 14.9 (11.0-16.0) % Plt Count 218 (160-400) X10*3/uL MPV 9.8 (9.4-12.4) fL Immature Gran % (Auto) 0.2 (0.0-0.4) % Neut % (Auto) 58.4 (45-73) % Lymph % (Auto) 24.6 (20-40) % Churchill % (Auto) 11.6 H (2-11) % Eos % (Auto) 4.4 H (0-4) % Baso % (Auto) 0.8 (0-2) % Lymph # (Auto) 2.1 (1.2-4.9) X10*3/uL Churchill # (Auto) 1.0 (0.1-1.2) X10*3/uL Eos # (Auto) 0.4 (0.0-0.4) X10*3/uL Baso # (Auto) 0.1 (0.0-0.2) X10*3/uL Abs Immat Gran (auto) 0.02 (0.00-0.03) X10*3/uL Absolute Neuts (auto) 5.1 (2.0-8.3) x10*3/uL Absolute Nucleated RBC 0.000 (0.0-0.012) X10*3/uL Nucleated RBC % (auto) 0.0 (0.0-0.2) /100WBC PT 13.7 H (10.9-12.4) SEC INR 1.2 H (0.9-1.1) Sodium 139 (135-145) mmol/L Potassium 4.0 D (3.3-5.1) mmol/L Chloride 105 (96-108) mmol/L Carbon Dioxide 25 (22-29) mmol/L Anion Gap 13 (12-20) BUN 15 (9-16) mg/dL Creatinine 0.89 (0.5-1.4) mg/dL Estim Creat Clear Calc 130.1 Estimated GFR > 60 Random Glucose 95 (60-115) mg/dL Lactic Acid 0.7 (0.5-2.0) mmol/L Calcium 8.7 D (8.4-10.2) mg/dL Magnesium 2.0 (1.6-2.6) mg/dL Total Bilirubin 0.2 (0.0-1.0) mg/dL AST 26 (5-37) U/L ALT 16 (0-40) U/L Alkaline Phosphatase 58 (39-117) U/L Troponin I High Sens < 2.7 (<3.5-35.0) ng/L B-Natriuretic Peptide 24 (<100) pg/mL Total Protein 7.4 (6.5-8.0) g/dL Albumin 4.0 (3.5-5.0) g/dL Radiology Impression Discussion of test interpretation with radiology: I have reviewed the radiologist's reading. External Record Review External record reviewed: Inpatient record Prescription Management I considered prescription management with: Antibiotic Chronic Conditions Patient?s care impacted by: Other (Housing and security, polysubstance use disorder, DVT) Social Determinants Patient?s care significantly limited by Social Determinants of Health including: Inadequate housing and Alcoholism and drug addiction in family Discharge Plan Discharge Clinical Impression: Cellulitis of left leg without foot, Syncopal episodes Patient Disposition: Home, Self-Care Instructions: Cellulitis (ED) Additional Instructions: Take your antibiotic as prescribed until the course is completed. Do not stop this medication early when you start to feel better. Return to the emergency department immediately if you develop any new or worsening symptoms including: Worsening pain despite antibiotics, redness that tracks up your legs, fevers greater than 100 degrees, any new symptom that concerns you. Call 911 with any medical emergency. Prescriptions: New cephalexin 500 mg capsule 500 mg PO QID 7 Days Qty: 28 0RF No Action metronidazole 500 mg tablet 500 mg PO BID Qty: 14 0RF doxycycline hyclate 100 mg capsule 100 mg PO BID Qty: 14 0RF ibuprofen 600 mg tablet 600 mg PO TID PRN (Reason: fever or pain) Qty: 20 0RF Interventions: ED Discharge Assessment Last Done: 04/21/25 06:45 Discharge Date/Time: 04/21/25 06:51 Print Language: Persian
[2025-04-21 06:45] VITALS: BP 123/77; PULSE 77; RESP 18; TEMP 36.8; O2SAT 96
== END 2025-04-21 06:51 | disposition home or self-care (01) ==
PROVIDERS: Emergency Provider Emergency Medicine
DX: R55 Syncope and collapse (principal); L03.116 Cellulitis of left lower limb; M79.89 Other specified soft tissue disorders; I82.409 Acute embolism and thrombosis of unspecified deep veins of unspecified lower extremity; Z79.01 Long term (current) use of anticoagulants; Z79.899 Other long term (current) drug therapy
CPT/HCPCS: 36415; 71046; 80053; 83605; 83735; 83880; 84484; 85025; 85610; 87040; 93005; 93970; 96374; 99284; 99285; J0696

== ENCOUNTER → 2025-04-21 03:22 | Outpatient (BNV) | payer MEDICAID, SELFPAY | PROVIDERS: Emergency Provider Emergency Medicine; Visit Provider Internal Medicine Cardiovascular Disease | DX: R55 Syncope and collapse (principal) | CPT/HCPCS: 93010 ==

== ENCOUNTER → 2025-04-21 04:24 | Outpatient (BNV) | payer MEDICAID, SELFPAY | PROVIDERS: Emergency Provider Emergency Medicine; Visit Provider Specialist | DX: R22.43 Localized swelling, mass and lump, lower limb, bilateral (principal); R55 Syncope and collapse | CPT/HCPCS: 71046; 93970 ==